=== PATIENT | female | born 1960 | race Caucasian/White ===

== ENCOUNTER 2022-07-27 03:21 | Emergency (ER) | payer BC ==
[2022-07-27] VITALS (8 sets, daily range): BP systolic 129–157; BP diastolic 77–128
[2022-07-27 04:13] LABS: ALBUMIN 4.2 g/dL (3.2-5.0); ALKALINE PHOSPHATASE 49 u/l (38-126); ANION GAP 12 (6-22 (CALC)); BILIRUBIN, TOTAL 0.4 mg/dL (0.02-1.3); BUN 29 mg/dL (8-23); BUN/CREATININE RATIO 39 (12-20 (CALC)); CARBON DIOXIDE 24 mmol/l (22-30); CHLORIDE 108 mmol/l (95-108); CREATININE 0.7 mg/dL (0.5-1.0); GFR FOR AFR.AMER. > 60 ML/MIN (>=60 (CALC)); GFR OTHER RACES > 60 ML/MIN (>=60 (CALC)); POTASSIUM 3.6 mmol/l (3.5-5.1); SGOT/AST 24 u/l (9-36); SODIUM 140 mmol/l (137-146); TOTAL PROTEIN 7.3 g/dL (6.3-8.2)
[2022-07-27 04:22] LABS: BASO% 0.2 % (0-3); EOS% 1.4 % (0-8); HEMOGLOBIN 12.5 g/dl (12.0-16.0); IMMATURE GRANULOCYTES 0.6 % (0.0-5.0); LYMPH% 5.7 % (15-41); MEAN CELL VOLUME 85.5 fL CALC (80.0-100.0); MEAN CORPUSCULAR HGB 27.4 pG CALC (26.0-32.0); MEAN CORPUSCULAR HGB CONC 32.1 g/dL CAL (32.0-36.0); MONO% 4.8 % (2-13); NEUT# 5.82 thou/uL (2.00-7.15); NEUT% 87.3 % (42-76); RED BLOOD COUNT 4.56 mill/uL (4.20-5.60); RED CELL DISTRI WIDTH 12.4 % (11.5-15.5)
[2022-07-27 04:42] LABS: URINE BILIRUBIN - DIPSTICK NEGATIVE (NEGATIVE); URINE BLOOD DIPSTICK NEGATIVE (NEGATIVE); URINE COLOR YELLOW; URINE GLUCOSE - DIPSTICK NEGATIVE (NEGATIVE); URINE KETONE NEGATIVE (NEGATIVE); URINE LEUK ESTERASE NEGATIVE (NEGATIVE); URINE PROTEIN - DIPSTICK NEGATIVE (NEG-TRACE); URINE SPECIFIC GRAVITY 1.025; URINE UROBILINOGEN - DIPSTICK 0.2 E.U./dL (0.2)
[2022-07-27 04:43] LABS: URINE NITRITE - DIPSTICK NEGATIVE (Negative)
[2022-07-27] MEDS ORDERED: BACTRIM DS1 TAB PO (05:05)
[2022-07-27] MEDS ORDERED: ZOFRAN4 MG/TAB PO (05:08)
== END 2022-07-27 05:25 | disposition home or self-care (01) | DRG 392 ==
LOC: ED 03:21
PROVIDERS: Family Medicine
DX: R11.10 Vomiting, unspecified (principal); T36.0X5A Adverse effect of penicillins, initial encounter; T36.1X5A Adverse effect of cephalosporins and other beta-lactam antibiotics, initial encounter; E03.9 Hypothyroidism, unspecified; S50.872D Other superficial bite of left forearm, subsequent encounter; W54.0XXD Bitten by dog, subsequent encounter

== ENCOUNTER 2024-05-21 22:37 | Emergency (ER) | payer MEDICARE ==
[~2024-05-21 22:37] MED LIST: BACTRIM DS1 TAB PO; ZOFRAN4 MG/TAB PO
[2024-05-21 23:34] VITALS: BP 151/86
[2024-05-21] MEDS ORDERED: DOXYCYCLINE HYCLATE 100 MG/CAP PO ONE (23:55)
[2024-05-22] MEDS ORDERED: VIBRAMYCIN100 M2 PO (00:01)
[2024-05-22 00:22] VITALS: BP 151/86
== END 2024-05-22 00:35 | disposition home or self-care (01) ==
LOC: ED 22:37
DX: S01.551A Open bite of lip, initial encounter (principal); W54.0XXA Bitten by dog, initial encounter; Y93.K9 Activity, other involving animal care; Y92.009 Unspecified place in unspecified non-institutional (private) residence as the place of occurrence of the external cause